=== PATIENT | female | born 1960 | race Caucasian/White ===

== ENCOUNTER 2019-08-03 04:40 | Emergency (ER) | payer BC ==
[2019-08-03] MEDS ORDERED: Ketorolac 30 MG/ML SDV IVPUSH ONE (05:02)
[2019-08-03] MEDS ORDERED: Sodium Chloride 0.9% 1,000 ML IV ONE (05:02)
[2019-08-03] MEDS ORDERED: Ondansetron 4 MG/2 ML SDV IVPUSH ONE ×2 (05:03→06:39)
--- NOTE | 2019-08-03 05:10 | EDM.PDOC ---
ED HPI GENERAL MEDICAL PROBLEM - General Chief Complaint: Flank Pain Stated Complaint: LOW BACK PAIN, VOMITING, CAN'T URINATE Time Seen by Provider: 08/03/19 04:56 Source of Information: Reports: Patient History Limitations: Reports: No Limitations - History of Present Illness INITIAL COMMENTS - FREE TEXT/NARRATIVE: 58-year-old female presents the emergency room after waking up with acute left sided pain radiating to her back. Denies fever but states she is nauseated and vomited x1. Denies chest pain or shortness of breath. Onset: Sudden Duration: Hour(s):, Getting Worse Location: Reports: Abdomen, Back Quality: Reports: Ache Severity: Severe Improves with: Reports: None Worsens with: Reports: None Associated Symptoms: Reports: Nausea/Vomiting left flank Pain Score (Numeric/FACES): 10 - Related Data Allergies Allergy/AdvReac Type Severity Reaction Status Date / Time codeine Allergy Vomiting Verified 08/03/19 04:56 Sulfa (Sulfonamide Allergy Rash Verified 08/03/19 04:56 Antibiotics) ADHESIVE TAPE Allergy Rash Uncoded 08/03/19 04:56 Home Meds: Home Meds ClonazePAM [KlonoPIN] 0.5 mg PO BEDTIME 02/28/14 [History] Empagliflozin [Jardiance] 25 mg PO DAILY 08/03/19 [History] Lisinopril [Zestril] 5 mg PO DAILY 08/03/19 [History] Rosuvastatin [Crestor] 10 mg PO DAILY 08/03/19 [History] sitaGLIPtin Phos/Metformin HCl [Janumet 50-1,000 MG] 1 tab PO BID 08/03/19 [ History] Past Medical History HEENT History: Reports: Impaired Vision, Other (See Below) Other HEENT History: wears glasses [employer]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 Constitutional: Reports: No Symptoms HEENT: Reports: No Symptoms Respiratory: Reports: No Symptoms Cardiovascular: Reports: No Symptoms Endocrine: Reports: No Symptoms GI/Abdominal: Reports: Abdominal Pain : Reports: Dysuria, Urinary Retention Skin: Reports: No Symptoms Neurological: Reports: No Symptoms Psychiatric: Reports: No Symptoms Hematologic/Lymphatic: Reports: No Symptoms Immunologic: Reports: No Symptoms ED EXAM, RENAL/ - Physical Exam Exam: See Below Exam Limited By: No Limitations General Appearance: Alert, WD/WN, Moderate Distress Ears: Normal External Exam, Normal TMs Nose: Normal Inspection, Normal Mucosa Throat/Mouth: Normal Inspection, Normal Lips, Normal Oropharynx, Normal Voice Head: Atraumatic, Normocephalic Neck: Normal Inspection, Supple, Non-Tender Respiratory/Chest: No Respiratory Distress, Lungs Clear, Normal Breath Sounds Cardiovascular: Normal Peripheral Pulses, Regular Rate, Rhythm, No Edema GI/Abdominal: Normal Bowel Sounds, Soft, No Organomegaly, No Distention (Female) Exam: Deferred Rectal (Female) Exam: Deferred Back Exam: CVA Tenderness (L) Extremities: Normal Inspection, Normal Range of Motion, Non-Tender, No Pedal Edema, Normal Capillary Refill Neurological: Alert, Oriented, CN II-XII Intact, Normal Reflexes, No Motor/ Sensory Deficits Psychiatric: Normal Affect, Normal Mood Skin Exam: Warm, Dry, Intact Lymphatic: No Adenopathy Course - Vital Signs Text/Narrative:: 71-year-old female who presented to the emergency room with left flank pain. Patient has a 4 mm kidney stone with nephrosis. Patient now 3-4 out of pain will be given additional pain medicine and discharged home follow-up with urology. assessment is left-sided kidney stone with hydronephrosis 4 mm Last Recorded V/S: Last Vital Signs Temp 96.5 F 08/03/19 04:45 Pulse 77 08/03/19 04:45 Resp 18 08/03/19 04:45 BP 119/53 L 08/03/19 04:45 Pulse Ox 93 L 08/03/19 04:45 - Orders/Labs/Meds Orders: Active Orders 24 hr Category Date Time Status CULTURE URINE [RM] Stat Lab 08/03/19 05:35 Received Ondansetron [Zofran] Med 08/03/19 06:39 Once 4 mg IVPUSH ONETIME ONE Labs: Laboratory Tests 08/03/19 08/03/19 08/03/19 Range/Units 05:10 05:10 05:35 WBC 10.72 (4.0-11.0) K/uL RBC 4.59 (4.30-5.90) M/uL Hgb 15.6 (12.0-16.0) g/dL Hct 44.0 (36.0-46.0) % MCV 95.9 (80.0-98.0) fL MCH 34.0 H (27.0-32.0) pg MCHC 35.5 (31.0-37.0) g/dL RDW Std Deviation 44.0 (28.0-62.0) fl RDW Coeff of Jim 13 (11.0-15.0) % Plt Count 195 (150-400) K/uL MPV 10.60 (7.40-12.00) fL Neut % (Auto) 81.3 H (48.0-80.0) % Lymph % (Auto) 13.8 L (16.0-40.0) % Armstrong % (Auto) 4.5 (0.0-15.0) % Eos % (Auto) 0.3 (0.0-7.0) % Baso % (Auto) 0.1 (0.0-1.5) % Neut # (Auto) 8.7 H (1.4-5.7) K/uL Lymph # (Auto) 1.5 (0.6-2.4) K/uL Armstrong # (Auto) 0.5 (0.0-0.8) K/uL Eos # (Auto) 0.0 (0.0-0.7) K/uL Baso # (Auto) 0.0 (0.0-0.1) K/uL Nucleated RBC % 0.0 /100WBC Nucleated RBCs # 0 K/uL Sodium 138 (136-145) mmol/L Potassium 3.9 (3.5-5.1) mmol/L Chloride 101 (98-107) mmol/L Carbon Dioxide 28.0 (21.0-32.0) mmol/L BUN 13 (7.0-18.0) mg/dL Creatinine 1.0 (0.6-1.0) mg/dL Est Cr Clr Drug Dosing 64.87 mL/min Estimated GFR (MDRD) 57.1 ml/min Glucose 287 H (74-106) mg/dL Calcium 8.4 L (8.5-10.1) mg/dL Total Bilirubin 0.3 (0.2-1.0) mg/dL AST 20 (15-37) IU/L ALT 42 (14-63) IU/L Alkaline Phosphatase 95 (46-116) U/L Total Protein 6.8 (6.4-8.2) g/dL Albumin 3.8 (3.4-5.0) g/dL Globulin 3.0 (2.6-4.0) g/dL Albumin/Globulin Ratio 1.3 (0.9-1.6) Urine Color YELLOW Urine Appearance SLT CLOUDY Urine pH 5.5 (5.0-8.0) Ur Specific [place] 1.015 (1.001-1.035) Urine Protein NEGATIVE (NEGATIVE) mg/dL Urine Glucose (UA) >=1000 (NEGATIVE) mg/dL Urine Ketones NEGATIVE (NEGATIVE) mg/dL Urine Occult Blood MODERATE H (NEGATIVE) Urine Nitrite POSITIVE H (NEGATIVE) Urine Bilirubin NEGATIVE (NEGATIVE) Urine Urobilinogen 0.2 (<2.0) EU/dL Ur Leukocyte Esterase NEGATIVE (NEGATIVE) Urine RBC 3-6 (0-2/HPF) Urine WBC 0-3 (0-5/HPF) Ur Epithelial Cells RARE (NONE-FEW) Urine Bacteria 2+ H (NEGATIVE) Urine Mucus LIGHT (NONE-MOD) Urine Yeast FEW Meds: Medications Discontinued Medications Generic Name Dose Route Start Last Admin Trade Name Freq PRN Reason Stop Dose Admin Sodium Chloride 1,000 mls @ 1,000 mls/hr 08/03/19 05:02 08/03/19 05:14 Normal Saline IV 08/03/19 06:01 1,000 mls/hr .Bolus ONE Administration Ketorolac Tromethamine 30 mg 08/03/19 05:02 08/03/19 05:14 Toradol IVPUSH 08/03/19 05:03 30 mg ONETIME ONE Administration Morphine Sulfate 4 mg 08/03/19 06:38 Morphine IVPUSH 08/03/19 06:39 ONETIME ONE Ondansetron HCl 4 mg 08/03/19 05:03 08/03/19 05:14 Zofran IVPUSH 08/03/19 05:04 4 mg ONETIME ONE Administration Ondansetron HCl 4 mg 08/03/19 06:39 Zofran IVPUSH 08/03/19 06:40 ONETIME ONE Departure - Departure Time of Disposition: 06:43 Disposition: Home, Self-Care 01 Condition: Good Clinical Impression: Ureteric colic - Discharge Information Instructions: Kidney Stones, [id number] Referrals: Silas Chen MD [Primary Care Provider] - Forms: ED Department Discharge Sepsis Event Note - Evaluation Sepsis Screening Result: No Definite Risk - Focused Exam Vital Signs: Vital Signs Temp Pulse Resp BP Pulse Ox 08/03/19 04:45 96.5 F 77 18 119/53 L 93 L Date Exam was Performed: 08/03/19 Time Exam was Performed: 06:40 - My Orders Last 24 Hours: My Active Orders 08/03/19 05:35 CULTURE URINE [RM] Stat 08/03/19 06:39 Ondansetron [Zofran] 4 mg IVPUSH ONETIME ONE - Assessment/Plan Last 24 Hours: My Active Orders 08/03/19 05:35 CULTURE URINE [RM] Stat 08/03/19 06:39 Ondansetron [Zofran] 4 mg IVPUSH ONETIME ONE
[2019-08-03 05:39] LABS: POTASSIUM,K 3.9 mmol/L (3.5-5.1)
--- NOTE | 2019-08-03 06:23 | CT ---
INDICATION: Left flank pain TECHNIQUE: CT abdomen and pelvis without contrast. COMPARISON: None. FINDINGS: Lower chest: Unremarkable. Liver: Normal in size and attenuation. No masses. Gallbladder and bile ducts: No stones or inflammation. No biliary dilatation. Pancreas: Unremarkable. No mass or inflammation. Spleen: Normal in size. No masses. Adrenal glands: Normal in size. No nodules. Kidneys: A 4 mm stone in the proximal left ureter is causing mild hydronephrosis. A 2nd small stone it is in a left lower pole calyx. No right-sided stones. GI tract: Unremarkable. Normal in caliber. No sign of mass or inflammation. Normal appendix. Vasculature: Unremarkable. Lymph nodes: No lymphadenopathy. Abdominal wall/Omentum/Peritoneum: Unremarkable. No sign of mass or infiltration. No free air or significant free fluid. Pelvis: Unremarkable. No pelvic masses. Bones: Unremarkable for age. IMPRESSION: 4 mm stone in the proximal left ureter causing mild hydronephrosis. Please note that all CT scans at this facility use dose modulation, iterative reconstruction, and/or weight-based dosing when appropriate to reduce radiation dose to as low as reasonably achievable. Dictated by Mitch Sage MD @ Aug 03 2019 6:18AM Signed by Dr. Mitch Sage @ Aug 03 2019 6:21AM
[2019-08-03] MEDS ORDERED: Morphine 4 MG/ML Syringe IVPUSH ONE (06:38)
[2019-08-03 06:43] VITALS: PULSE 82
[2019-08-03 06:50] VITALS: BP 111/45
== END 2019-08-03 07:10 | disposition home or self-care (01) ==
LOC: MW.ED 04:40
DX: N13.2 Hydronephrosis with renal and ureteral calculous obstruction (principal); E11.9 Type 2 diabetes mellitus without complications; F17.210 Nicotine dependence, cigarettes, uncomplicated; Z88.5 Allergy status to narcotic agent; Z88.2 Allergy status to sulfonamides; Z91.048 Other nonmedicinal substance allergy status
CPT/HCPCS: 36415; 74176; 80053; 81001; 85025; 87086; 87088; 87186; 96361; 96374; 96375; 96376; 99284; J1885; J2270; J2405; J7030; 99283

== ENCOUNTER 2019-08-05 18:41 | Emergency (ER) | payer BC ==
[2019-08-05] MEDS: Sodium Chloride 0.9% 1,000 ML IV ONE ×3 (19:50→23:01)
--- NOTE | 2019-08-05 20:04 | EDM.PDOC ---
ED HPI GENERAL MEDICAL PROBLEM - General Chief Complaint: Genitourinary Problem Stated Complaint: KIDNEY STONES Time Seen by Provider: 08/05/19 19:57 Source of Information: Reports: Patient History Limitations: Reports: No Limitations - History of Present Illness Onset: Gradual Duration: Day(s):, Getting Worse Location: Reports: Abdomen Quality: Reports: Ache Severity: Moderate Improves with: Reports: None Worsens with: Reports: None Bilateral Flank Pain Score (Numeric/FACES): 10 - Related Data Allergies Allergy/AdvReac Type Severity Reaction Status Date / Time codeine Allergy Vomiting Verified 08/05/19 19:00 Sulfa (Sulfonamide Allergy Rash Verified 08/05/19 19:00 Antibiotics) ADHESIVE TAPE Allergy Rash Uncoded 08/05/19 19:00 Home Meds: Home Meds ClonazePAM [KlonoPIN] 0.5 mg PO BEDTIME 02/28/14 [History] Empagliflozin [Jardiance] 25 mg PO DAILY 08/03/19 [History] Lisinopril [Zestril] 5 mg PO DAILY 08/03/19 [History] Rosuvastatin [Crestor] 10 mg PO DAILY 08/03/19 [History] Tamsulosin [Tamsulosin 24 Hr] 0.4 mg PO DAILY #10 cap.er 08/03/19 [Rx] sitaGLIPtin Phos/Metformin HCl [Janumet 50-1,000 MG] 1 tab PO BID 08/03/19 [ History] traMADol [Ultram] 50 mg PO Q6H PRN #20 tab 08/03/19 [Rx] Past Medical History HEENT History: Reports: Impaired Vision, Other (See Below) Other HEENT History: 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: Psychiatric History: Reports: Anxiety Endocrine/Metabolic History: Reports: Diabetes, Type II - Infectious Disease History Infectious Disease History: Reports: None - Past Surgical History GI Surgical History: Reports: Cholecystectomy Female Surgical History: Reports: Tubal Ligation Social & Family History - Family History Family Medical History: Noncontributory - Tobacco Use Smoking Status *Q: Current Every Day Smoker Years of Tobacco use: 40 Packs/Tins Daily: 1 - Caffeine Use Caffeine Use: Reports: None - Recreational Drug Use Recreational Drug Use: No ED ROS GENERAL - Review of Systems Review Of Systems: See Below Constitutional: Reports: Weakness, Decreased Appetite HEENT: Reports: No Symptoms Respiratory: Reports: No Symptoms Cardiovascular: Reports: No Symptoms Endocrine: Reports: Fatigue, High Glucose GI/Abdominal: Reports: Abdominal Pain, Nausea, Vomiting : Reports: Flank Pain Musculoskeletal: Reports: No Symptoms Skin: Reports: No Symptoms Neurological: Reports: No Symptoms Psychiatric: Reports: No Symptoms Hematologic/Lymphatic: Reports: No Symptoms Immunologic: Reports: No Symptoms ED EXAM, GI/ABD - Physical Exam Exam: See Below Text/Narrative:: -58 year-old female presents the emergency room after 4 days of abdominal pain flank pain nausea and vomiting patient is diabetic and confirm kidney stone from yesterday On exam HEENT is normal Chest: Patient has normal S1-S2 Lungs clear to auscultation Abdomen: Generalized abdominal pain minimal flank tenderness Extremities are norRmal Exam Limited By: No Limitations General Appearance: Alert, WD/WN, No Apparent Distress, Moderate Distress Eyes: Bilateral: Normal Appearance Ears: Normal External Exam, Normal Canal, Normal TMs Nose: Normal Inspection, Normal Mucosa Throat/Mouth: Normal Inspection, Normal Lips, Normal Teeth, Normal Oropharynx, Normal Voice Head: Atraumatic, Normocephalic Neck: Normal Inspection, Supple, Non-Tender Respiratory/Chest: No Respiratory Distress, Lungs Clear, Normal Breath Sounds, No Accessory Muscle Use, Chest Non-Tender Cardiovascular: Normal Peripheral Pulses, Regular Rate, Rhythm, No Edema, No Gallop, No JVD, No Murmur GI/Abdominal Exam: Normal Bowel Sounds, Soft, Non-Tender, No Distention (Female) Exam: Deferred Rectal (Female) Exam: Deferred Back Exam: Normal Inspection, Full Range of Motion, CVA Tenderness (L) Extremities: Normal Inspection, Normal Range of Motion, Non-Tender, No Pedal Edema, Normal Capillary Refill Neurological: Alert, Oriented, CN II-XII Intact, Normal Cognition, Normal Gait, Normal Reflexes, No Motor/Sensory Deficits Psychiatric: Normal Affect, Normal Mood Skin Exam: Warm, Dry, Intact, Normal Color, No Rash Lymphatic: No Adenopathy Course - Vital Signs Last Recorded V/S: Last Vital Signs Temp 99.1 F 08/05/19 21:00 Pulse 101 H 08/05/19 21:41 Resp 18 08/05/19 21:41 BP 107/64 08/05/19 21:41 Pulse Ox 92 L 08/05/19 21:41 - Orders/Labs/Meds Orders: Active Orders 24 hr Category Date Time Status Oxygen Therapy Adult [Oxygen Therapy, ED] [RC] Care 08/05/19 21:01 Active ASDIRECTED CULTURE BLOOD [BC] Stat Lab 08/05/19 20:15 Received CULTURE BLOOD [BC] Stat Lab 08/05/19 20:15 Results CULTURE URINE [RM] Stat Lab 08/05/19 20:40 Received Ciprofloxacin in D5W [Cipro in D5W 400 MG/200 ML] 400 Med 08/05/19 20:30 Active mg Premix Bag 1 bag IV Q12H Blood Culture x2 Reflex Set [OM.PC] Stat Oth 08/05/19 20:07 Ordered Medication Orders Ciprofloxacin/Dextrose 400 mg/ (Premix) 200 mls @ 200 mls/hr IV Q12H JOSE R Last Admin: 08/05/19 21:05 Dose: 200 mls/hr Labs: Laboratory Tests 08/05/19 08/05/19 08/05/19 Range/Units 19:10 19:40 19:40 WBC 16.19 H (4.0-11.0) K/uL RBC 4.50 (4.30-5.90) M/uL Hgb 14.8 (12.0-16.0) g/dL Hct 42.2 (36.0-46.0) % MCV 93.8 (80.0-98.0) fL MCH 32.9 H (27.0-32.0) pg MCHC 35.1 (31.0-37.0) g/dL RDW Std Deviation 45.1 (28.0-62.0) fl RDW Coeff of Jim 13 (11.0-15.0) % Plt Count 45 L (150-400) K/uL MPV 11.90 (7.40-12.00) fL Add Manual Diff YES Neutrophils % (Manual) 88 H (48.0-80.0) % Band Neutrophils % 3 % Lymphocytes % (Manual) 5 L (16.0-40.0) % Monocytes % (Manual) 4 (0.0-15.0) % Nucleated RBC % 0.0 /100WBC Absolute Seg Neuts 14.2 H (1.4-5.7) Band Neutrophils # 0.5 Lymphocytes # (Manual) 0.8 (0.6-2.4) Monocytes # (Manual) 0.6 (0.0-0.8) Nucleated RBCs # 0 K/uL Lactate (0.20-2.00) mmol/L Sodium 132 L (136-145) mmol/L Potassium 3.9 (3.5-5.1) mmol/L Chloride 95 L (98-107) mmol/L Carbon Dioxide 26.0 (21.0-32.0) mmol/L BUN 38 H (7.0-18.0) mg/dL Creatinine 1.3 H (0.6-1.0) mg/dL Est Cr Clr Drug Dosing 49.90 mL/min Estimated GFR (MDRD) 42.2 ml/min Glucose 245 H (74-106) mg/dL POC Glucose 249 H (60-110) mg/dL Calcium 8.6 (8.5-10.1) mg/dL Total Bilirubin 1.1 H (0.2-1.0) mg/dL AST 129 H (15-37) IU/L ALT 146 H (14-63) IU/L Alkaline Phosphatase 137 H (46-116) U/L Total Protein 6.9 (6.4-8.2) g/dL Albumin 2.7 L (3.4-5.0) g/dL Globulin 4.2 H (2.6-4.0) g/dL Albumin/Globulin Ratio 0.6 L (0.9-1.6) Urine Color Urine Appearance Urine pH (5.0-8.0) Ur Specific [place] (1.001-1.035) Urine Protein (NEGATIVE) mg/dL Urine Glucose (UA) (NEGATIVE) mg/dL Urine Ketones (NEGATIVE) mg/dL Urine Occult Blood (NEGATIVE) Urine Nitrite (NEGATIVE) Urine Bilirubin (NEGATIVE) Urine Urobilinogen (<2.0) EU/dL Ur Leukocyte Esterase (NEGATIVE) Urine RBC (0-2/HPF) Urine WBC (0-5/HPF) Ur Epithelial Cells (NONE-FEW) Urine Bacteria (NEGATIVE) 08/05/19 08/05/19 Range/Units 19:50 20:40 WBC (4.0-11.0) K/uL RBC (4.30-5.90) M/uL Hgb (12.0-16.0) g/dL Hct (36.0-46.0) % MCV (80.0-98.0) fL MCH (27.0-32.0) pg MCHC (31.0-37.0) g/dL RDW Std Deviation (28.0-62.0) fl RDW Coeff of Jim (11.0-15.0) % Plt Count (150-400) K/uL MPV (7.40-12.00) fL Add Manual Diff Neutrophils % (Manual) (48.0-80.0) % Band Neutrophils % % Lymphocytes % (Manual) (16.0-40.0) % Monocytes % (Manual) (0.0-15.0) % Nucleated RBC % /100WBC Absolute Seg Neuts (1.4-5.7) Band Neutrophils # Lymphocytes # (Manual) (0.6-2.4) Monocytes # (Manual) (0.0-0.8) Nucleated RBCs # K/uL Lactate 2.3 H* (0.20-2.00) mmol/L Sodium (136-145) mmol/L Potassium (3.5-5.1) mmol/L Chloride (98-107) mmol/L Carbon Dioxide (21.0-32.0) mmol/L BUN (7.0-18.0) mg/dL Creatinine (0.6-1.0) mg/dL Est Cr Clr Drug Dosing mL/min Estimated GFR (MDRD) ml/min Glucose (74-106) mg/dL POC Glucose (60-110) mg/dL Calcium (8.5-10.1) mg/dL Total Bilirubin (0.2-1.0) mg/dL AST (15-37) IU/L ALT (14-63) IU/L Alkaline Phosphatase (46-116) U/L Total Protein (6.4-8.2) g/dL Albumin (3.4-5.0) g/dL Globulin (2.6-4.0) g/dL Albumin/Globulin Ratio (0.9-1.6) Urine Color DARK YELLOW Urine Appearance SLT CLOUDY Urine pH 6.0 (5.0-8.0) Ur Specific [place] 1.025 (1.001-1.035) Urine Protein 100 H (NEGATIVE) mg/dL Urine Glucose (UA) 500 H (NEGATIVE) mg/dL Urine Ketones 15 H (NEGATIVE) mg/dL Urine Occult Blood MODERATE H (NEGATIVE) Urine Nitrite POSITIVE H (NEGATIVE) Urine Bilirubin NEGATIVE (NEGATIVE) Urine Urobilinogen 2.0 H (<2.0) EU/dL Ur Leukocyte Esterase NEGATIVE (NEGATIVE) Urine RBC 15-17 (0-2/HPF) Urine WBC 5-8 (0-5/HPF) Ur Epithelial Cells FEW (NONE-FEW) Urine Bacteria 1+ H (NEGATIVE) Meds: Medications Generic Name Dose Route Start Last Admin Trade Name Freq PRN Reason Stop Dose Admin Ciprofloxacin/Dextrose 400 mg/ 200 mls @ 200 mls/hr 08/05/19 20:30 08/05/19 21:05 Premix IV 200 mls/hr Q12H JOSE R Administration Discontinued Medications Generic Name Dose Route Start Last Admin Trade Name Freq PRN Reason Stop Dose Admin Hydromorphone HCl 1 mg 08/05/19 19:58 08/05/19 20:32 Dilaudid IVPUSH 08/05/19 19:59 1 mg ONETIME ONE Administration Sodium Chloride 1,000 mls @ 999 mls/hr 08/05/19 19:49 08/05/19 19:50 Normal Saline IV 08/05/19 20:49 999 mls/hr .Bolus ONE Administration Cefazolin Sodium/Dextrose 1 gm 50 mls @ 100 mls/hr 08/05/19 20:16 08/05/19 20 :33 / Premix IV 08/05/19 20:45 100 mls/hr ONETIME ONE Administration Ondansetron HCl 4 mg 08/05/19 19:59 08/05/19 20:32 Zofran IVPUSH 08/05/19 20:00 4 mg ONETIME ONE Administration Departure - Departure Time of Disposition: 21:55 Disposition: DC/Tfer to Acute Hospital 02 Condition: Good Clinical Impression: Kidney stone, Sepsis, Dehydration, moderate, UTI, Urinary tract infectious disease, Diabetes - Discharge Information Referrals: Silas Chen MD [Primary Care Provider] - Forms: ED Department Discharge Sepsis Event Note - Evaluation Sepsis Screening Result: No Definite Risk - Focused Exam Vital Signs: Vital Signs Temp Temp Pulse Resp BP Pulse Ox 08/05/19 21:41 101 H 18 107/64 92 L 08/05/19 21:00 99.1 F 105 H 18 114/61 85 L 08/05/19 20:28 100 08/05/19 19:00 98.6 F 121 H 18 114/65 100 Date Exam was Performed: 08/05/19 Time Exam was Performed: 21:48 - My Orders Last 24 Hours: My Active Orders 08/05/19 20:07 Blood Culture x2 Reflex Set [OM.PC] Stat 08/05/19 20:15 CULTURE BLOOD [BC] Stat CULTURE BLOOD [BC] Stat 08/05/19 20:30 Ciprofloxacin in D5W [Cipro in D5W 400 MG/200 ML] 400 mg Premix Bag 1 bag IV Q12H 08/05/19 20:40 CULTURE URINE [RM] Stat 08/05/19 21:01 Oxygen Therapy Adult [Oxygen Therapy, ED] [RC] ASDIRECTED - Assessment/Plan Last 24 Hours: My Active Orders 08/05/19 20:07 Blood Culture x2 Reflex Set [OM.PC] Stat 08/05/19 20:15 CULTURE BLOOD [BC] Stat CULTURE BLOOD [BC] Stat 08/05/19 20:30 Ciprofloxacin in D5W [Cipro in D5W 400 MG/200 ML] 400 mg Premix Bag 1 bag IV Q12H 08/05/19 20:40 CULTURE URINE [RM] Stat 08/05/19 21:01 Oxygen Therapy Adult [Oxygen Therapy, ED] [RC] ASDIRECTED
[2019-08-05 20:22] LABS: POTASSIUM,K 3.9 mmol/L (3.5-5.1)
[2019-08-05] MEDS: HYDROmorphone 1 MG/ML Syringe IVPUSH ONE (20:32)
[2019-08-05] MEDS: Ondansetron 4 MG/2 ML SDV IVPUSH ONE (20:32)
[2019-08-05] MEDS: ceFAZolin 1 GM in Premix Bag 1 BAG IV ONE (20:33)
--- NOTE | 2019-08-05 21:02 | CR ---
INDICATION: Pain. TECHNIQUE: AP upright chest. COMPARISON: None. FINDINGS: Normal cardiac, mediastinal and hilar contours. Normal pulmonary vasculature. Other than minor bibasilar atelectasis, the lungs are clear. No appreciable pleural fluid on this single view study. No pneumothorax. IMPRESSION: No signs of acute thoracic disease. Dictated by Fredi Rose MD @ Aug 05 2019 9:00PM Signed by Dr. Fredi Rose @ Aug 05 2019 9:00PM
[2019-08-05] MEDS: Ciprofloxacin in D5W 400 MG in Premix Bag 1 BAG IV SCH ×2 (21:05)
--- NOTE | 2019-08-05 21:06 | CR ---
INDICATION: Pain. TECHNIQUE: Three views of the abdomen and pelvis. COMPARISON: CT from 08/03/2019. IMPRESSION: No signs of free air. No abnormally dilated bowel is seen to suggest obstruction. Cholecystectomy clips are present in the right upper quadrant. There is a small stone seen overlying the inferior pole of the left kidney. The stone noted in the proximal left ureter on the recent CT is not definitively seen. Dictated by Fredi Rose MD @ Aug 05 2019 9:05PM Signed by Dr. Fredi Rose @ Aug 05 2019 9:05PM
[2019-08-06 00:40] VITALS: BP 98/53; PULSE 93
== END 2019-08-06 01:25 ==
LOC: MW.ED 18:41
DX: E86.0 Dehydration (principal); N13.2 Hydronephrosis with renal and ureteral calculous obstruction; A41.9 Sepsis, unspecified organism; N39.0 Urinary tract infection, site not specified; E11.9 Type 2 diabetes mellitus without complications; F41.9 Anxiety disorder, unspecified; Z90.49 Acquired absence of other specified parts of digestive tract; F17.210 Nicotine dependence, cigarettes, uncomplicated; Z88.2 Allergy status to sulfonamides; Z88.5 Allergy status to narcotic agent; Z91.048 Other nonmedicinal substance allergy status; Z79.899 Other long term (current) drug therapy
CPT/HCPCS: 71045; 74019; 80053; 81001; 82962; 83605; 85025; 87040; 87077; 87086; 87088; 87186; 96361; 96365; 96366; 96375; 99285; J0690; J0744; J1170; J2405; J7030; 99284

== ENCOUNTER 2021-04-13 23:49 | Emergency (ER) | payer SELFPAY ==
--- NOTE | 2021-04-14 01:07 | EDM.PDOC ---
<Bonilla Luo - Last Filed: 04/14/21 04:00> ED HPI GENERAL MEDICAL PROBLEM - General Chief Complaint: Behavioral/Psych Stated Complaint: MENTAL HEALTH EVAL Time Seen by Provider: 04/14/21 01:07 - History of Present Illness INITIAL COMMENTS - FREE TEXT/NARRATIVE: HISTORY AND PHYSICAL: History of present illness: This a 60-year-old female with history significant for diabetes, renal disease, liver disease, status post cholecystectomy, history of renal colic with an obstructed kidney stone/sepsis status post renal stent, who presents ER today by [place] police secondary to concerns for suicidal ideation. Patient had sent text to her daughter earlier today after an argument dispute with her. Pictures from the police academy instructor revealed that the patient sent the following text. "I guess she can see that I am the worst mom ever I want you to know that I love you and I will see you when you come to my grave site which will be soon. Love you always and forever tell your sister I left her to. Good by Picture with a gun sent to daughter that says goodbye I love you. Patient reports she has no prior history of mental health issues and has not been admitted in the past for suicidal ideation. Patient denies any other symptomatology at this time. Patient has any recent fevers, shakes, chills, nausea, vomiting, diarrhea, dysuria, frequency, urgency, chest pain, shortness of breath. Review of systems: As per history of present illness and below otherwise all systems reviewed and negative. Past medical history: As per history of present illness and as reviewed below otherwise nonco ntributory. Surgical history: As per history of present illness and as reviewed below otherwise noncontributory. Social history: No reported history of drug abuse. Family history: As per history of present illness and as reviewed below otherwise noncontributory. Physical exam: This patient was seen and evaluated during the 2019 SARS-CoV-2 novel coronavirus pandemic period. Community viral transmission is ongoing at time of this encounter and the emergency department is operating under pandemic response procedures. Constitutional: Patient is oriented to person, place, and time. Appears well- developed and well-nourished. No distress. HEENT: Moist mucous membranes Head: Normocephalic and atraumatic Eyes: Right eye exhibits no discharge. Left eye exhibits no discharge. No scleral icterus Neck: Normal range of motion. No tracheal deviation present. Cardiovascular: Normal rate and regular rhythm. Pulmonary: Effort normal, no respiratory distress. Abdominal: No distention Musculoskeletal: Normal range of motion Neurologic: Alert and oriented to person, place and time. Skin: [place], warm and dry. Psychiatric: Normal mood and affect. Behavior is normal. Judgment and thought content normal. Patient currently denies suicidal ideation and is requesting to be discharged home. Nursing note and vital signs have been reviewed Diagnostics: CBC, CMP, EtOH, UDS all within normal limits. Therapeutics: [] Assessment and plan: 60-year-old female who presents ER today secondary to concern for suicidal ideation. Patient sent from extremely concerning text to her daughter regarding her upcoming as well as a picture of a gun. In discussion with the patient, it appears that she has been under a lot of stress relating to issues with her and her 10-year-old son. She also is extremely upset because her daughter does not talk to her anymore and does not spend enough time with her. She reports that her daughter is dating an individual who she despises and has been putting a wedge between the patient and her daughter. Given the circumstances and the tacks that were sent to, I feel that the patient is at high risk for suicidality. Patient will be medically cleared and will try to find a suitable facility for her for admission. Definitive disposition and diagnosis as appropriate pending reevaluation and review of above. - Related Data Allergies Allergy/AdvReac Type Severity Reaction Status Date / Time codeine Allergy Vomiting Verified 08/05/19 19:00 Sulfa (Sulfonamide Allergy Rash Verified 08/05/19 19:00 Antibiotics) ADHESIVE TAPE Allergy Rash Uncoded 08/05/19 19:00 Home Meds: Home Meds ClonazePAM [KlonoPIN] 0.5 mg PO BEDTIME 02/28/14 [History] Empagliflozin [Jardiance] 25 mg PO DAILY 08/03/19 [History] Rosuvastatin [Crestor] 10 mg PO DAILY 08/03/19 [History] Tamsulosin [Tamsulosin 24 Hr] 0.4 mg PO DAILY #10 cap.er 08/03/19 [Rx] lisinopriL [Zestril] 5 mg PO DAILY 08/03/19 [History] sitaGLIPtin Phos/Metformin HCl [Janumet 50-1,000 MG] 1 tab PO BID 08/03/19 [History] traMADol [Ultram] 50 mg PO Q6H PRN #20 tab 08/03/19 [Rx] Past Medical History HEENT History: Reports: Impaired Vision, Other (See Below) Other HEENT History: wears glasses 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: Psychiatric History: Reports: Anxiety Endocrine/Metabolic History: Reports: Diabetes, Type II - Infectious Disease History Infectious Disease History: Reports: None - Past Surgical History GI Surgical History: Reports: Cholecystectomy Female Surgical History: Reports: Tubal Ligation Social & Family History - Family History Family Medical History: No Pertinent Family History - Tobacco Use Tobacco Use Status *Q: Current Every Day Tobacco User Years of Tobacco use: 47 Packs/Tins Daily: 0.5 - Caffeine Use Caffeine Use: Reports: None - Recreational Drug Use Recreational Drug Use: No ED ROS GENERAL - Review of Systems Review Of Systems: See Below ED EXAM, GENERAL - Physical Exam Exam: See Below Departure - Departure Disposition: DC/Tfer to Psych Hosp/Unit [facility] Clinical Impression: Suicidal ideation - Discharge Information Referrals: Yves Matamoros MD [Primary Care Provider] - Forms: ED Department Discharge <Jassi Sepulveda - Last Filed: 04/14/21 10:00> Course - Vital Signs Last Recorded V/S: Last Vital Signs Temp 98.1 F 04/14/21 08:30 Pulse 70 04/14/21 09:50 Resp 18 04/14/21 09:50 BP 95/45 L 04/14/21 09:50 Pulse Ox 92 L 04/14/21 09:50 - Orders/Labs/Meds Orders: Active Orders 24 hr Category Date Time Status EKG Documentation Completion [RC] STAT Care 04/14/21 00:28 Active Labs: Laboratory Tests 04/14/21 04/14/21 04/14/21 Range/Units 01:00 01:00 01:51 WBC 6.48 (4.0-11.0) K/uL RBC 5.06 (4.30-5.90) M/uL Hgb 16.3 H (12.0-16.0) g/dL Hct 47.3 H (36.0-46.0) % MCV 93.5 (80.0-98.0) fL MCH 32.2 H (27.0-32.0) pg MCHC 34.5 (31.0-37.0) g/dL RDW Std Deviation 40.2 (28.0-62.0) fl RDW Coeff of Jim 12 (11.0-15.0) % Plt Count 191 (150-400) K/uL MPV 10.00 (7.40-12.00) fL Neut % (Auto) 59.6 (48.0-80.0) % Lymph % (Auto) 31.9 (16.0-40.0) % [place] % (Auto) 7.4 (0.0-15.0) % Eos % (Auto) 0.8 (0.0-7.0) % Baso % (Auto) 0.3 (0.0-1.5) % Neut # (Auto) 3.9 (1.4-5.7) K/uL Lymph # (Auto) 2.1 (0.6-2.4) K/uL [place] # (Auto) 0.5 (0.0-0.8) K/uL Eos # (Auto) 0.1 (0.0-0.7) K/uL Baso # (Auto) 0.0 (0.0-0.1) K/uL Sodium 130 L (136-145) mmol/L Potassium 5.0 (3.5-5.1) mmol/L Chloride 94 L (98-107) mmol/L Carbon Dioxide 31.0 (21.0-32.0) mmol/L BUN 22 H (7.0-18.0) mg/dL Creatinine 1.2 H (0.6-1.0) mg/dL Est Cr Clr Drug Dosing 52.75 mL/min Estimated GFR (MDRD) 46.0 ml/min Glucose 471 H (74-106) mg/dL Calcium 9.6 (8.5-10.1) mg/dL Magnesium 2.1 (1.8-2.4) mg/dL Total Bilirubin 0.4 (0.2-1.0) mg/dL AST 20 (15-37) IU/L ALT 33 (14-63) IU/L Alkaline Phosphatase 131 H (46-116) U/L Total Protein 7.5 (6.4-8.2) g/dL Albumin 3.9 (3.4-5.0) g/dL Globulin 3.6 (2.6-4.0) g/dL Albumin/Globulin Ratio 1.1 (0.9-1.6) Free T4 2.02 H (0.76-1.46) ng/dL TSH, Ultra Sensitive 2.36 (0.36-3.74) uIU/mL Urine Color YELLOW Urine Appearance SLT CLOUDY Urine pH 6.0 (5.0-8.0) Ur Specific [place] 1.015 (1.001-1.035) Urine Protein NEGATIVE (NEGATIVE) mg/dL Urine Glucose (UA) >=1000 (NEGATIVE) mg/dL Urine Ketones NEGATIVE (NEGATIVE) mg/dL Urine Occult Blood NEGATIVE (NEGATIVE) Urine Nitrite POSITIVE H (NEGATIVE) Urine Bilirubin NEGATIVE (NEGATIVE) Urine Urobilinogen 0.2 (<2.0) EU/dL Ur Leukocyte Esterase NEGATIVE (NEGATIVE) Urine RBC 0-1 (0-2/HPF) Urine WBC 3-6 (0-5/HPF) Ur Epithelial Cells FEW (NONE-FEW) Urine Bacteria 2+ H (NEGATIVE) Salicylates 4.0 (0-20) mg/dL Urine Opiates Screen (NEGATIVE) Ur Oxycodone Screen (NEGATIVE) Urine Methadone Screen (NEGATIVE) Acetaminophen <2.0 ug/mL Ur Barbiturates Screen (NEGATIVE) Ur Phencyclidine Scrn (NEGATIVE) Ur Amphetamine Screen (NEGATIVE) U Methamphetamines Scrn (NEGATIVE) U Benzodiazepines Scrn (NEGATIVE) U Cocaine Metab Screen (NEGATIVE) U Marijuana (THC) Screen (NEGATIVE) Ethyl Alcohol <3 mg/dL SARS-CoV-2 RNA (HANG) (NEGATIVE) 04/14/21 04/14/21 Range/Units 01:51 01:51 WBC (4.0-11.0) K/uL RBC (4.30-5.90) M/uL Hgb (12.0-16.0) g/dL Hct (36.0-46.0) % MCV (80.0-98.0) fL MCH (27.0-32.0) pg MCHC (31.0-37.0) g/dL RDW Std Deviation (28.0-62.0) fl RDW Coeff of Jim (11.0-15.0) % Plt Count (150-400) K/uL MPV (7.40-12.00) fL Neut % (Auto) (48.0-80.0) % Lymph % (Auto) (16.0-40.0) % [place] % (Auto) (0.0-15.0) % Eos % (Auto) (0.0-7.0) % Baso % (Auto) (0.0-1.5) % Neut # (Auto) (1.4-5.7) K/uL Lymph # (Auto) (0.6-2.4) K/uL [place] # (Auto) (0.0-0.8) K/uL Eos # (Auto) (0.0-0.7) K/uL Baso # (Auto) (0.0-0.1) K/uL Sodium (136-145) mmol/L Potassium (3.5-5.1) mmol/L Chloride (98-107) mmol/L Carbon Dioxide (21.0-32.0) mmol/L BUN (7.0-18.0) mg/dL Creatinine (0.6-1.0) mg/dL Est Cr Clr Drug Dosing mL/min Estimated GFR (MDRD) ml/min Glucose (74-106) mg/dL Calcium (8.5-10.1) mg/dL Magnesium (1.8-2.4) mg/dL Total Bilirubin (0.2-1.0) mg/dL AST (15-37) IU/L ALT (14-63) IU/L Alkaline Phosphatase (46-116) U/L Total Protein (6.4-8.2) g/dL Albumin (3.4-5.0) g/dL Globulin (2.6-4.0) g/dL Albumin/Globulin Ratio (0.9-1.6) Free T4 (0.76-1.46) ng/dL TSH, Ultra Sensitive (0.36-3.74) uIU/mL Urine Color Urine Appearance Urine pH (5.0-8.0) Ur Specific [place] (1.001-1.035) Urine Protein (NEGATIVE) mg/dL Urine Glucose (UA) (NEGATIVE) mg/dL Urine Ketones (NEGATIVE) mg/dL Urine Occult Blood (NEGATIVE) Urine Nitrite (NEGATIVE) Urine Bilirubin (NEGATIVE) Urine Urobilinogen (<2.0) EU/dL Ur Leukocyte Esterase (NEGATIVE) Urine RBC (0-2/HPF) Urine WBC (0-5/HPF) Ur Epithelial Cells (NONE-FEW) Urine Bacteria (NEGATIVE) Salicylates (0-20) mg/dL Urine Opiates Screen NEGATIVE (NEGATIVE) Ur Oxycodone Screen NEGATIVE (NEGATIVE) Urine Methadone Screen NEGATIVE (NEGATIVE) Acetaminophen ug/mL Ur Barbiturates Screen NEGATIVE (NEGATIVE) Ur Phencyclidine Scrn NEGATIVE (NEGATIVE) Ur Amphetamine Screen NEGATIVE (NEGATIVE) U Methamphetamines Scrn NEGATIVE (NEGATIVE) U Benzodiazepines Scrn NEGATIVE (NEGATIVE) U Cocaine Metab Screen NEGATIVE (NEGATIVE) U Marijuana (THC) Screen NEGATIVE (NEGATIVE) Ethyl Alcohol mg/dL SARS-CoV-2 RNA (HANG) NEGATIVE (NEGATIVE) Meds: Medications Discontinued Medications Generic Name Dose Route Start Last Admin Trade Name Freq PRN Reason Stop Dose Admin Haloperidol Lactate 5 mg 04/14/21 09:31 Haloperidol Lactate 5 Mg/Ml Sdv IM 04/14/21 09:32 ONETIME ONE Lorazepam 2 mg 04/14/21 09:31 Lorazepam 2 Mg/Ml Sdv IM 04/14/21 09:32 ONETIME ONE - Re-Assessments/Exams Free Text/Narrative Re-Assessment/Exam: 04/14/21 08:19 [facility] has no beds. [facility] has no beds. [facility] has no beds. [facility] has no beds. [facility] has no beds but will call back later today. [facility] has no beds. 04/14/21 09:59 Dr. Guidry agrees to admit patient under her [facility] at [facility] - Departure Time of Disposition: 10:00 Condition: Good Sepsis Event Note (ED) - Focused Exam Vital Signs: Vital Signs Temp Pulse Resp BP Pulse Ox 04/14/21 09:50 70 18 95/45 L 92 L 04/14/21 09:15 71 18 97/49 L 92 L 04/14/21 08:30 98.1 F 78 18 93/44 L 94 L 04/14/21 08:00 98.1 F 74 18 104/49 L 93 L 04/14/21 07:30 98.1 F 94 18 94/47 L 94 L 09/07/21 07:00 98.1 F 74 18 101/73 94 L 04/14/21 06:30 77 18 90/46 L 93 L 04/14/21 06:00 69 18 97/48 L 93 L 04/14/21 05:30 75 18 86/43 L 92 L 04/14/21 05:00 73 17 86/47 L 91 L 04/14/21 04:30 70 18 102/42 L 91 L 04/14/21 04:00 74 17 98/48 L 92 L 04/14/21 03:30 66 18 118/69 91 L 04/14/21 03:00 92 18 113/71 96 04/14/21 02:30 84 18 106/50 L 95 04/14/21 02:00 81 17 114/55 L 96 04/14/21 01:30 71 18 123/54 L 95 04/14/21 01:00 67 17 119/44 L 94 L 04/14/21 00:30 66 18 115/43 L 95 04/14/21 00:00 70 18 106/52 L 94 L 04/13/21 23:59 97.3 F 74 18 131/77 92 L
[2021-04-14 01:38] LABS: ACETAMINOPHEN <2.0 ug/mL; BLOOD UREA NITROGEN,BUN 22 mg/dL (7.0-18.0); CHLORIDE,CL 94 mmol/L (98-107); GLUCOSE RANDOM 471 mg/dL (74-106); SODIUM,NA 130 mmol/L (136-145)
[2021-04-14] MEDS ORDERED: Haloperidol Lactate 5 MG/ML SDV IM ONE (09:31)
[2021-04-14] MEDS ORDERED: LORazepam 2 MG/ML SDV IM ONE (09:31)
[2021-04-14 15:48] VITALS: BP 83/41; PULSE 75
== END 2021-04-14 13:45 ==
LOC: MW.ED 23:49
DX: R45.851 Suicidal ideations (principal); E11.9 Type 2 diabetes mellitus without complications; Z90.49 Acquired absence of other specified parts of digestive tract; Z72.0 Tobacco use; Z88.5 Allergy status to narcotic agent; Z88.2 Allergy status to sulfonamides; Z91.048 Other nonmedicinal substance allergy status; Z79.899 Other long term (current) drug therapy; Z20.822 Contact with and (suspected) exposure to COVID-19
CPT/HCPCS: 36415; 80053; 80143; 80179; 80305-QW; 80307; 81001; 83735; 84439; 84443; 85025; 99285-25; U0002

== ENCOUNTER 2023-06-15 08:48 | Emergency (ER) | payer SELFPAY ==
[2023-06-15] MEDS ORDERED: Sodium Chloride 0.9% 1,000 ML IV ONE ×2 (09:05→10:13)
[2023-06-15] MEDS ORDERED: Ondansetron 4 MG/2 ML SDV IVPUSH ONE (09:05)
[2023-06-15] MEDS ORDERED: Ketorolac 30 MG/ML SDV IVPUSH ONE (09:05)
[2023-06-15 09:33] LABS: BASOPHILS ABSOLUTE AUTO 0.02 K/uL (0.00-0.20); BASOPHILS PERCENT AUTO 0.3 % (0.0-1.0); EOSINOPHILS ABSOLUTE AUTO 0.04 K/uL (0.00-0.45); EOSINOPHILS PERCENT AUTO 0.6 % (0.0-6.0); HEMATOCRIT 39.5 % (37.0-47.0); IMMATURE GRAN ABSOLUTE AUTO 0.02 K/uL (0.00-0.05); IMMATURE GRAN PERCENT AUTO 0.3 % (0.0-0.4); LYMPHOCYTES ABSOLUTE AUTO 1.86 K/uL (1.00-4.80); LYMPHOCYTES PERCENT AUTO 29.1 % (24.0-44.0); MEAN CORPUSCULAR HEMOGLOBIN 32.6 pg (28.0-32.0); MEAN CORPUSCULAR HGB CONC 35.4 g/dL (32.0-36.0); MEAN CORPUSCULAR VOLUME 91.9 fL (83.0-99.0); MEAN PLATELET VOLUME 9.5 fL (9.4-12.3); MONOCYTES ABSOLUTE AUTO 0.36 K/uL (0.00-0.80); MONOCYTES PERCENT AUTO 5.6 % (0.0-8.0); NEUTROPHILS PERCENT AUTO 64.1 % (41.0-71.0); PLATELET COUNT,PLT 206 K/uL (150-400)
[2023-06-15 09:52] LABS: A/G RATIO 0.9 (0.9-1.6); ALBUMIN 3.4 g/dL (3.4-5.0); BILIRUBIN TOTAL 0.3 mg/dL (0.2-1.0); CARBON DIOXIDE,CO2 29.7 mmol/L (21.0-32.0); CREATININE 1.2 mg/dL (0.6-1.0); EST CRCL DRUG DOSING (CG) 51.45 mL/min; POTASSIUM,K 4.3 mmol/L (3.5-5.1); PROTEIN TOTAL,TP 7.1 g/dL (6.4-8.2)
[2023-06-15 11:07] LABS: APPEARANCE,URINE CLEAR; BILIRUBIN,URINE NEGATIVE (NEGATIVE); COLOR,URINE YELLOW; GLUCOSE,URINE >=1000 mg/dL (NEGATIVE); KETONES,URINE NEGATIVE (NEGATIVE); LEUKOCYTE ESTERASE,URINE NEGATIVE (NEGATIVE); NITRITE,URINE NEGATIVE (NEGATIVE); OCCULT BLOOD,URINE NEGATIVE (NEGATIVE); PROTEIN,URINE NEGATIVE (NEGATIVE)
[2023-06-15 12:02] VITALS: BP 95/48; PULSE 71
== END 2023-06-15 11:50 | disposition home or self-care (01) ==
LOC: MW.ED 08:48
DX: R10.9 Unspecified abdominal pain (principal); E11.9 Type 2 diabetes mellitus without complications; Z90.49 Acquired absence of other specified parts of digestive tract; Z79.899 Other long term (current) drug therapy; Z88.5 Allergy status to narcotic agent; Z88.2 Allergy status to sulfonamides; Z91.048 Other nonmedicinal substance allergy status
CPT/HCPCS: 36415; 74176; 80053; 81003; 85025; 96361; 96374; 96375; 99284; J1885; J2405; J7030